=== PATIENT | female | born 1990 | race Caucasian/White ===

== ENCOUNTER 2021-02-17 20:29 | Emergency (ER) | payer OTHER ==
[~2021-02-17] VITALS: Ht 172.7 cm; Wt 105.2 kg
== END 2021-02-17 22:11 | disposition left against medical advice (07) ==
LOC: ED 20:29
DX: M54.2 Cervicalgia (principal); R20.0 Anesthesia of skin; F41.9 Anxiety disorder, unspecified; Z53.29 Procedure and treatment not carried out because of patient's decision for other reasons